=== PATIENT | female | born 1980 | race African-American/Black ===

== ENCOUNTER 2016-07-02 14:12 | Emergency (ER) | payer OTHER ==
[~2016-07-02] VITALS: Ht 160 cm; Wt 76.2 kg
[2016-07-02] MEDS ORDERED: DIPH25CA58 PO (14:32)
[2016-07-02] MEDS ORDERED: ASPIRIN 325 MG TABLET PO ONE (15:30)
--- NOTE | 2016-07-02 15:54 | EKG ---
[facility] [address] [place] [address] Test Date: 2016-07-02 Test Time: 14:25:25 Pat Name: DARIANA LEOS Department: Room: Gender: F Metal Pickling Equipment Operator: : 1980 Requested By: BIRD MACKEY Order Number: [id number] Reading MD: Christine Edmonds Measurements Intervals Porter Rate: 83 P: 0 IL: 130 QRS: 52 QRSD: 94 T: 10 QT: 394 QTc: 469 Interpretive Statements SINUS RHYTHM INCOMPLETE RIGHT BUNDLE BRANCH BLOCK NO SPECIFIC ECG ABNORMALITIES RI6.01 No previous ECG available for comparison Electronically Signed On 07-06-2016 15:34:14 [employer] by Christine Edmonds
[2016-07-02 16:00] LABS: BILIRUBIN,URINE SMALL (NEG); GLUCOSE,URINE NEGATIVE (NEG); NITRITE,URINE NEGATIVE (NEG); PROTEIN,URINE 30 mg/dL (NEG-TRACE)
[2016-07-02 16:07] LABS: BASO % 0 % (0-3); EOS % 2 % (0-3); HEMATOCRIT 39.5 % (36.0-47.0); HEMOGLOBIN 13.6 g/dL (12.0-15.5); LYMPH # 0.8 x10^3/uL (1.0-4.8); LYMPH % 8 % (24-48); MEAN CORPUSCULAR HEMOGLOBIN 34 pg (25-35); MEAN CORPUSCULAR HGB CONC 35 g/dL (31-37); MEAN CORPUSCULAR VOLUME 99 fL (79-100); MONO % 9 % (0-9); NEUT % 82 % (31-73); PLATELET COUNT 206 x10^3/uL (140-400); RED BLOOD COUNT 3.99 x10^6/uL (3.50-5.40); RED CELL DISTRIBUTION WIDTH 12.5 % (11.5-14.5); WHITE BLOOD COUNT 10.5 x10^3/uL (4.0-11.0)
[2016-07-02 16:09] VITALS: BP 176/100
[2016-07-02 16:25] LABS: CALCIUM 8.6 mg/dL (8.5-10.1); CREATININE 0.6 mg/dL (0.6-1.0); GFR 138.5; POTASSIUM 3.2 mmol/L (3.5-5.1)
[2016-07-02 16:27] LABS: OBC FLU VALID
[2016-07-02 16:33] LABS: BACTERIA,URINE FEW /HPF (0-FEW); RBC,URINE 0 /HPF (0-2); SQUAMOUS EPITHELIAL CELL,UR MOD /LPF
--- NOTE | 2016-07-02 16:38 | RAD ---
2 view CXR: Clinical indications: Mid chest pain and dyspnea that started today. Findings: No acute lung infiltrate or pleural effusion or pulmonary edema or lung mass or pneumothorax is seen. The heart size, pulmonary vasculature, mediastinum and both maribel are unremarkable. The osseous structures appear intact. Impression: No acute radiographic abnormality is seen.
[2016-07-02 16:39] LABS: CKMB INDEX 0.8 % (0-4); CKMB MASS 1.1 ng/mL (0.0-3.6)
[2016-07-02] MEDS ORDERED: POTASSIUM CHLORIDE 20 MEQ TABLET.ER. PO ONE (16:45)
[2016-07-02] MEDS ORDERED: OSEL75CA PO (17:00)
--- NOTE | 2016-07-02 17:00 | PHYS DOC ---
Past Medical History Past Medical History: Diabetes-Type II, Hypertension Additional Past Medical Histor: uncontrolled DM and HTN. Past Surgical History: No Surgical History Alcohol Use: Occasionally Drug Use: Marijuana Social History Narrative: last use one week ago Adult General Chief Complaint Chief Complaint: CHEST PAIN HPI HPI Patient is a 36 year old female with history of diabetes and hypertension who presents today with mild substernal chest pain worse on deep breaths and coughing that began yesterday. Patient denies anything making the pain better. Patient states she also has nasal congestion and subjective fevers. She is also complaining of generalized body aches. Patient denies any chance he is . She states her diabetes and hypertension were all resolved after she lost an incredible amount of weight. She states she currently does not take any medicines for diabetes and hypertension. She does not have a PCP. Review of Systems Review of Systems Constitutional: Body aches and subjective fevers Eyes: Denies change in visual acuity, redness, or eye pain [] HENT: Nasal congestion Respiratory: Cough and chest pain GI: Denies abdominal pain, nausea, vomiting, bloody stools or diarrhea [] : Denies dysuria or hematuria [] Musculoskeletal: Denies back pain or joint pain [] Integument: Denies rash or skin lesions [] Neurologic: Denies headache, focal weakness or sensory changes [] Endocrine: Denies polyuria or polydipsia [] Current Medications Current Medications Current Medications Medications (Trade) Dose Ordered Sig/Gina Start Time Stop Time Status Last Admin Dose Admin Aspirin (Conner Aspirin) 325 mg 1X ONCE 07/02/16 15:30 07/02/16 15:33 DC 07/02/16 15:43 325 MG Potassium Chloride (Klor-Con) 40 meq 1X ONCE 07/02/16 16:45 07/02/16 16:46 DC 07/02/16 16:36 40 MEQ Allergies Allergies Allergies Coded Allergies Type Severity Reaction Last Updated Verified Penicillins Allergy Unknown 07/02/16 Yes Physical Exam Physical Exam Constitutional: Well developed, well nourished, no acute distress, non-toxic appearance. [] HENT: Normocephalic, atraumatic, bilateral external ears normal, oropharynx moist, no oral exudates, nose normal. [] Eyes: PERRLA, EOMI, conjunctiva normal, no discharge. [] Neck: Normal range of motion, no tenderness, supple, no stridor. [] Cardiovascular:Heart rate regular rhythm, no murmur [] Lungs & Thorax: Bilateral breath sounds clear to auscultation [] Abdomen: Bowel sounds normal, soft, no tenderness, no masses, no pulsatile masses. [] Skin: Warm, dry, no erythema, no rash. [] Back: No tenderness, no CVA tenderness. [] Extremities: No tenderness, no cyanosis, no clubbing, ROM intact, no edema. [] Neurologic: Alert and oriented X 3, normal motor function, normal sensory function, no focal deficits noted. [] Psychologic: Affect normal, judgement normal, mood normal. [] Current Patient Data Vital Signs Vital Signs Date Time Temp Pulse Resp B/P Pulse Ox O2 Delivery O2 Flow Rate FiO2 07/02/16 14:20 97.8 80 16 172/110 100 Room Air 97.8 Lab Values Laboratory Tests Test 07/02/16 14:30 07/02/16 14:59 07/02/16 15:50 07/02/16 15:55 Glucose (Fingerstick) 78mg/dL (70-99) POC Urine HCG, Qualitative hcg negative (Negative) White Blood Count 10.5x10^3/uL (4.0-11.0) Red Blood Count 3.99x10^6/uL (3.50-5.40) Hemoglobin 13.6g/dL (12.0-15.5) Hematocrit 39.5% (36.0-47.0) Mean Corpuscular Volume 99fL (79-100) Mean Corpuscular Hemoglobin 34pg (25-35) Mean Corpuscular Hemoglobin Concent 35g/dL (31-37) Red Cell Distribution Width 12.5% (11.5-14.5) Platelet Count 206x10^3/uL (140-400) Neutrophils (%) (Auto) 82% (31-73) H Lymphocytes (%) (Auto) 8% (24-48) L Monocytes (%) (Auto) 9% (0-9) Eosinophils (%) (Auto) 2% (0-3) Basophils (%) (Auto) 0% (0-3) Neutrophils # (Auto) 8.6x10^3uL (1.8-7.7) H Lymphocytes # (Auto) 0.8x10^3/uL (1.0-4.8) L Monocytes # (Auto) 0.9x10^3/uL (0.0-1.1) Eosinophils # (Auto) 0.2x10^3/uL (0.0-0.7) Basophils # (Auto) 0.0x10^3/uL (0.0-0.2) Urine Collection Type Unknown Urine Color Dk yellow Urine Clarity Clear Urine pH 7.0 Urine Specific Butterfield 1.025 Urine Protein 30mg/dL (NEG-TRACE) Urine Glucose (UA) Negativemg/dL (NEG) Urine Ketones (Stick) 40mg/dL (NEG) Urine Blood Negative (NEG) Urine Nitrite Negative (NEG) Urine Bilirubin Small (NEG) Urine Urobilinogen Dipstick 1.0mg/dL (0.2 mg/dL) Urine Leukocyte Esterase Negative (NEG) Urine RBC 0/HPF (0-2) Urine WBC 5-10/HPF (0-4) Urine Squamous Epithelial Cells Mod/LPF Urine Bacteria Few/HPF (0-FEW) Urine Mucus Marked/LPF Sodium Level 139mmol/L (136-145) Potassium Level 3.2mmol/L (3.5-5.1) L Chloride Level 105mmol/L (98-107) Carbon Dioxide Level 20mmol/L (21-32) L Anion Gap 14 (6-14) Blood Urea Nitrogen 7mg/dL (7-20) Creatinine 0.6mg/dL (0.6-1.0) Estimated GFR (Cockcroft-Gault) 138.5 Glucose Level 91mg/dL (70-99) Calcium Level 8.6mg/dL (8.5-10.1) Creatine Kinase 135U/L (26-192) Creatine Kinase MB (Mass) 1.1ng/mL (0.0-3.6) Creatine Kinase MB Relative Index 0.8% (0-4) Troponin I Quantitative < 0.017ng/mL (0.000-0.055) II-Eqr-S-Type Natriuretic Peptide 283pg/mL (0-124) H Influenza Type A Antigen Positive (NEGATIVE) Influenza Type B Antigen Negative (NEGATIVE) Laboratory Tests 07/02/16 15:50 Laboratory Tests 07/02/16 15:50 EKG EKG [] Radiology/Procedures Radiology/Procedures [] Course & Med Decision Making Course & Med Decision Making Pertinent Labs and Imaging studies reviewed. (See chart for details) Patient is in the ED with multiple complaints including body aches, chest pain, coughing, nasal congestion. She is also complaining of subjective fevers. She has history of hypertension her blood pressure is 172/110 that she states she had lost an incredible amount of white and she was taken off the hypertension and diabetes medication. Informed patient I'll prefer she contacts her PCP and tries to follow-up for this blood pressure. Patient states the BP could be elevated because she is in the ED typically at home it's not high. 14:[address] Moreland sinus rhythm with incomplete right bundle branch block, HR 83 QRS interval 94 no STEMI CBC with no acute findings, BMP potassium of 3.2. Patient was given potassium replacement in the ED and encouraged to increase her dietary potassium intake. Negative urine hCG, chest x-ray interpreted by radiologist as negative for any acute findings. Positive for influenza A, negative influenza B. Patient has been ill for 2 days. She is within the treatment window. She was discharged with Tamiflu. Tylenol /Motrin recommended for pain or fever. Follow-up with her own PCP in the next one to 7 days. She was provided return precautions and discharged in stable condition. Dragon Disclaimer Dragon Disclaimer This electronic medical record was generated, in whole or in part, using a voice recognition dictation system. Departure Departure Impression: Primary Impression: Influenza Additional Impressions: Accelerated hypertension Cough Hypokalemia Chest pain Disposition: 01 HOME, SELF-CARE Condition: STABLE Referrals: NO PCP (PCP) follow up with your doctor in 1-7 days Patient Instructions: Cough, Adult, Upper Respiratory Infection, Adult Additional Instructions: You tested positive for influenza A, this is a viral illness. Take the prescribed Tamiflu as ordered. Push fluids. Maintain very good hygiene. Take Tylenol every 4 hours and Motrin every 6 hours as needed for pain or fever. Come back to the emergency room at any point if symptoms worsen. Your blood pressure was also high in the emergency room 172/110. We highly recommend you see a primary care doctor soon possible and have this rechecked. Increase your dietary potassium intake through foods like bananas. Scripts Oseltamivir Phosphate (Tamiflu)75 Mg Capsule1 Cap PO BID #10 CAP Prov:MUTUNGA,BIRD ARCHITECTURAL DRAFTSPERSON 07/02/16 Problem Qualifiers Additional Impressions: Chest pain Chest pain type: unspecified Qualified Code: R07.9 - Chest pain, unspecified BIRD MACKEY ARCHITECTURAL DRAFTSPERSON Jul 02, 2016 17:00
== END 2016-07-02 17:31 | disposition home or self-care (01) ==
LOC: ER 14:12
DX: J11.1 Influenza due to unidentified influenza virus with other respiratory manifestations (principal); I10 Essential (primary) hypertension; E87.6 Hypokalemia; E11.9 Type 2 diabetes mellitus without complications; F12.10 Cannabis abuse, uncomplicated; Z88.0 Allergy status to penicillin; Z79.899 Other long term (current) drug therapy
CPT/HCPCS: 36415; 71020; 80048; 81001; 81025; 82553; 82947; 83880; 84484; 85027; 87804; 93005; 99285-25

== ENCOUNTER 2017-09-30 07:50 | Emergency (ER) | payer SELFPAY, OTHER | END 2017-09-30 08:15 | disposition home or self-care (01) | LOC: ER 08:15 | DX: T16.2XXA Foreign body in left ear, initial encounter (principal); E11.9 Type 2 diabetes mellitus without complications; I10 Essential (primary) hypertension; F12.10 Cannabis abuse, uncomplicated; Z88.0 Allergy status to penicillin; X58.XXXA Exposure to other specified factors, initial encounter; Y93.89 Activity, other specified; Y92.89 Other specified places as the place of occurrence of the external cause; Y99.8 Other external cause status | CPT/HCPCS: 69200; 99284 ==